=== PATIENT | female | born 1955 | race Caucasian/White ===

== ENCOUNTER 2025-03-18 08:04 | Inpatient (IN) | payer MEDICARE, BC ==
[~2025-03-18] VITALS: Ht 167.6 cm; Wt 86.6 kg
[~2025-03-18 08:04] MED LIST: LEVO50TA8 PO; THYR30TA2 PO
[2025-03-18] MEDS ORDERED: VANCOMYCIN 1 GM VIAL ONE (09:48)
[2025-03-18] MEDS ORDERED: dexaMETHasone SOD PHOSPHATE 1 ML ONE (09:48)
[2025-03-18] MEDS ORDERED: LIDOCAINE 2%-EPI 1:100,000 30 ML VIAL ONE (09:48)
[2025-03-18] MEDS ORDERED: LABETALOL HCL IV 100MG VIAL ONE (09:53)
[2025-03-18 11:00] VITALS: BP 133/58; TEMP 98.4; O2SAT 98
[2025-03-18 12:00] VITALS: BP 133/58; TEMP 98.4; O2SAT 98
[2025-03-18] MEDS ORDERED: ACETAMINOPHEN 325 MG TABLET PO PRN ×2 (13:00→16:30)
[2025-03-18] MEDS: IV NS 0.9% 1,000 ML IV PRN (13:26)
[2025-03-18] MEDS ORDERED: HYDROMORPHONE 1 MG/1 ML DISP.SYRIN IV PRN (13:30)
[2025-03-18] MEDS ORDERED: ONDANSETRON HCL/PF 4 MG/2 ML VIAL IV PRN (13:30)
[2025-03-18 16:00] VITALS: BP_SYST 117; BP_SYST 133; BP_DIAS 58; BP_DIAS 62; TEMP 97.5; TEMP 98.4; O2SAT 96; O2SAT 98
[2025-03-18] MEDS ORDERED: ONDANSETRON HCL/PF 4 MG/2 ML VIAL IVP PRN (16:30)
[2025-03-18] MEDS ORDERED: Z GUARD REMEDY 4 OZ OINT TP PRN (16:30)
[2025-03-18] MEDS ORDERED: MAGNESIUM HYDROXIDE 30 ML UDC PO PRN (16:30)
[2025-03-18] MEDS ORDERED: MAG HYDROX/AL HYDROX/SIMETH 30 ML UDC PO PRN (16:30)
[2025-03-18 20:00] VITALS: BP 114/56; TEMP 98.2; O2SAT 95; O2SAT 97
[2025-03-18] MEDS: VANCOMYCIN 1 GM in IV D5W 250ml IV SCH (20:09)
[2025-03-18] MEDS ORDERED: VANCOMYCIN 1 GM in IV D5W 250ml IV SCH (21:00)
[2025-03-19 08:00] VITALS: BP 123/59; TEMP 98.6; O2SAT 96
== END 2025-03-19 10:00 | disposition home or self-care (01) | DRG 497 ==
LOC: DS 08:04 → MED 11:46
PROVIDERS: ADMIT Dentist Oral and Maxillofacial Surgery; ATTEND Dentist Oral and Maxillofacial Surgery
PROC: 0WB30ZX Excision of Oral Cavity and Throat, Open Approach, Diagnostic (ICD-10-PCS; 2025-03-18)
PROC: 0N5T0ZZ Destruction of Right Mandible, Open Approach (ICD-10-PCS; 2025-03-18)
PROC: 0N5V0ZZ Destruction of Left Mandible, Open Approach (ICD-10-PCS; 2025-03-18)
PROC: 0NPW04Z Removal of Internal Fixation Device from Facial Bone, Open Approach (ICD-10-PCS; principal; 2025-03-18 10:15)
DX: T84.69XA Infection and inflammatory reaction due to internal fixation device of other site, initial encounter (principal); Y83.8 Other surgical procedures as the cause of abnormal reaction of the patient, or of later complication, without mention of misadventure at the time of the procedure; Y92.009 Unspecified place in unspecified non-institutional (private) residence as the place of occurrence of the external cause; K12.30 Oral mucositis (ulcerative), unspecified; K13.70 Unspecified lesions of oral mucosa; E03.9 Hypothyroidism, unspecified
CPT/HCPCS: 88300-TC; 88305-TC; 88311-TC; A4223; A4338; G0378; J0690; J1100; J2405; J2704; J3370; J3490; J7030; J7060